=== PATIENT | female | born 1965 ===

== ENCOUNTER 2017-11-20 13:37 | Outpatient (CLI) | payer OTHER ==
[~2017-11-20 13:37] MED LIST: PROGESTERONE50 MG/M1
== END 2017-11-20 13:50 | disposition home or self-care (01) ==
LOC: LAB 13:37
DX: N30.00 Acute cystitis without hematuria (principal); R82.79 Other abnormal findings on microbiological examination of urine

== ENCOUNTER 2017-12-04 13:39 | Outpatient (CLI) | payer OTHER | END 2017-12-04 15:00 | disposition home or self-care (01) | LOC: NUCLEAR 13:39 | DX: I87.2 Venous insufficiency (chronic) (peripheral) (principal) ==